=== PATIENT | male | born 1990 | race Hispanic/Latino ===

== ENCOUNTER 2021-07-27 22:29 | Emergency (ER) | payer SELFPAY ==
[2021-07-27 23:52] LABS: SARS-COV-2 RT PCR NEGATIVE (NEGATIVE)
--- NOTE | 2021-07-28 01:18 | ER ---
Nurse's Notes [facility] Name: Pino Diez Age: 31 yrs Sex: Male : 1990 Arrival Date: 07/27/2021 Time: 22:36 Bed 3 Private MD: Diagnosis: Acute upper respiratory infection, unspecified;Cough Presentation: 07/27 22:47 Chief complaint: Patient states: We have had a cough going around our family this week. ld1 Coronavirus screen: Client presents with at least one sign or symptom that may indicate coronavirus-19. Standard/surgical mask placed on the client. Ebola Screen: No symptoms or risks identified at this time. Initial Sepsis Screen: Does the patient meet any 2 criteria? No. Patient's initial sepsis screen is negative. Does the patient have a suspected source of infection? No. Patient's initial sepsis screen is negative. Risk Assessment: Do you want to hurt yourself or someone else? Patient reports no desire to harm self or others. Onset of symptoms was July 27, 2021. 22:47 Method Of Arrival: Ambulatory ld1 22:47 Acuity: CHELSEY 4 ld1 Triage Assessment: 22:48 General: Appears in no apparent distress. comfortable, Behavior is calm, cooperative, ld1 appropriate for age. Pain: Denies pain. EENT: No signs and/or symptoms were reported regarding the EENT system. Neuro: Level of Consciousness is awake, alert, obeys commands, Oriented to person, place, time, situation, Appropriate for age. Cardiovascular: Capillary refill < 3 seconds Patient's skin is warm and dry. Respiratory: Reports cough that is Airway is patent Respiratory effort is even, unlabored, Respiratory pattern is regular, symmetrical. GI: No signs and/or symptoms were reported involving the gastrointestinal system. : No signs and/or symptoms were reported regarding the genitourinary system. Derm: No signs and/or symptoms reported regarding the dermatologic system. Musculoskeletal: No signs and/or symptoms reported regarding the musculoskeletal system. Historical: - Allergies: 22:48 No Known Allergies; ld1 - Home Meds: 22:48 None [Active]; ld1 - PMHx: 22:48 None; ld1 - PSHx: 22:48 None; ld1 - Immunization history:: Adult Immunizations up to date, Client reports receiving the 2nd dose of the Covid vaccine. - Social history:: Smoking status: Patient denies any tobacco usage or history of. Patient uses alcohol, occasionally. - Family history:: not pertinent. Screenin/23 01:16 Abuse screen: Denies threats or abuse. Denies injuries from another. Nutritional tw5 screening: No deficits noted. Tuberculosis screening: No symptoms or risk factors identified. Fall Risk None identified. Assessment: 01:16 Respiratory: Reports cough that is persistent Breath sounds are clear in right upper tw5 lobe, left upper lobe, left posterior upper lobe and right posterior upper lobe Breath sounds are coarse in left posterior lower lobe, right posterior middle lobe and right posterior lower lobe. Vital Signs: 07/27 22:47 BP 149 / 102; Pulse 114; Resp 18; Temp 98.4(TE); Pulse Ox 98% on R/A; Weight 90.72 kg; ld1 Height 5 ft. 10 in. (177.80 cm); Pain 0/10; 07/28 01:31 Pulse 88; Resp 18; Temp 98.7(O); Pulse Ox 100% on R/A; tw5 07/27 22:47 Body Mass Index 28.70 (90.72 kg, 177.80 cm) ld1 ED Course: 07/27 22:36 Patient arrived in ED. bp1 22:48 Triage completed. ld1 22:48 Arm band placed on right wrist. ld1 23:05 COVID-19/FLU A+B (Document "Date of Onset" if Symptomatic) Sent. ld1 07/28 00:30 Daniel Hoffman MD is Attending Physician. luis 00:44 Smiley Barney is Primary Nurse. df1 01:16 Patient has correct armband on for positive identification. tw5 01:16 No provider procedures requiring assistance completed. Patient did not have IV access tw5 during this emergency room visit. Administered Medications: No medications were administered Outcome: 01:18 Discharge ordered by . luis 01:31 Discharged to home ambulatory. tw5 01:31 Condition: good 01:31 Discharge instructions given to patient, Instructed on discharge instructions, follow up and referral plans. Demonstrated understanding of instructions, Prescriptions given X 2. 01:32 Patient left the ED. tw5 Signatures: Daniel Hoffman MD MD cha Paniauga, Brittany bp1 Dibbern, Lauren, RN RN ld1 Smiley Barney df1 Serina Mclean tw5
--- NOTE | 2021-07-28 01:19 | EDPHYS ---
Physician Documentation [facility] Name: Pino Diez Age: 31 yrs Sex: Male : 1990 Arrival Date: 07/27/2021 Time: 22:36 Bed 3 Private MD: ED Physician Daniel Hoffman HPI: 07/28 01:15 This 31 yrs old Male presents to ER via Ambulatory with complaints of Cough. luis 01:15 The patient or guardian reports airway noise, cough, that is constant, flu symptoms, luis arthralgias, low-grade fever, myalgias. Onset: The symptoms/episode began/occurred 2 day(s) ago. Severity of symptoms: At their worst the symptoms were mild, in the emergency department the symptoms are unchanged. Modifying factors: The symptoms are alleviated by nothing, the symptoms are aggravated by nothing. Associated signs and symptoms: Pertinent positives: fever, rhinorrhea, sore throat. The patient has experienced similar episodes in the past, a few times. Historical: - Allergies: 07/27 22:48 No Known Allergies; ld1 - Home Meds: 22:48 None [Active]; ld1 - PMHx: 22:48 None; ld1 - PSHx: 22:48 None; ld1 - Immunization history:: Adult Immunizations up to date, Client reports receiving the 2nd dose of the Covid vaccine. - Social history:: Smoking status: Patient denies any tobacco usage or history of. Patient uses alcohol, occasionally. - Family history:: not pertinent. ROS: 07/28 01:15 Constitutional: Negative for fever, chills, and weight loss, Eyes: Negative for injury, luis pain, redness, and discharge, ENT: Negative for injury, pain, and discharge, Neck: Negative for injury, pain, and swelling, Cardiovascular: Negative for chest pain, palpitations, and edema, Abdomen/GI: Negative for abdominal pain, nausea, vomiting, diarrhea, and constipation, Back: Negative for injury and pain, : Negative for injury, bleeding, discharge, and swelling, MS/Extremity: Negative for injury and deformity, Skin: Negative for injury, rash, and discoloration, Neuro: Negative for headache, weakness, numbness, tingling, and seizure, Psych: Negative for depression, anxiety, suicide ideation, homicidal ideation, and hallucinations, Allergy/Immunology: Negative for hives, rash, and allergies, Endocrine: Negative for neck swelling, polydipsia, polyuria, polyphagia, and marked weight changes, Hematologic/Lymphatic: Negative for swollen nodes, abnormal bleeding, and unusual bruising. Respiratory: Positive for cough, with no reported sputum, pleurisy. Exam: 01:15 Constitutional: This is a well developed, well nourished patient who is awake, alert, luis and in no acute distress. Head/Face: Normocephalic, atraumatic. Eyes: Pupils equal round and reactive to light, extra-ocular motions intact. Lids and lashes normal. Conjunctiva and sclera are non-icteric and not injected. Cornea within normal limits. Periorbital areas with no swelling, redness, or edema. ENT: Nares patent. No nasal discharge, no septal abnormalities noted. Tympanic membranes are normal and external auditory canals are clear. Oropharynx with no redness, swelling, or masses, exudates, or evidence of obstruction, uvula midline. Mucous membranes moist. Neck: Trachea midline, no thyromegaly or masses palpated, and no cervical lymphadenopathy. Supple, full range of motion without nuchal rigidity, or vertebral point tenderness. No Meningismus. Chest/axilla: Normal chest wall appearance and motion. Nontender with no deformity. No lesions are appreciated. Cardiovascular: Regular rate and rhythm with a normal S1 and S2. No gallops, murmurs, or rubs. Normal PMI, no JVD. No pulse deficits. Respiratory: Lungs have equal breath sounds bilaterally, clear to auscultation and percussion. No rales, rhonchi or wheezes noted. No increased work of breathing, no retractions or nasal flaring. Abdomen/GI: Soft, non-tender, with normal bowel sounds. No distension or tympany. No guarding or rebound. No evidence of tenderness throughout. Back: No spinal tenderness. No costovertebral tenderness. Full range of motion. Skin: Warm, dry with normal turgor. Normal color with no rashes, no lesions, and no evidence of cellulitis. MS/ Extremity: Pulses equal, no cyanosis. Neurovascular intact. Full, normal range of motion. Neuro: Awake and alert, GCS 15, oriented to person, place, time, and situation. Cranial nerves II-XII grossly intact. Motor strength 5/5 in all extremities. Sensory grossly intact. Cerebellar exam normal. Normal gait. Psych: Awake, alert, with orientation to person, place and time. Behavior, mood, and affect are within normal limits. 01:15 Musculoskeletal/extremity: Extremities: all appear grossly normal, with no appreciated pain with palpation, DVT Exam: No signs of deep vein thrombosis. no pain, no swelling, no tenderness, negative Homans' sign noted on exam, no appreciated bluish discoloration, no erythema, no increased warmth. Vital Signs: 07/27 22:47 BP 149 / 102; Pulse 114; Resp 18; Temp 98.4(TE); Pulse Ox 98% on R/A; Weight 90.72 kg; ld1 Height 5 ft. 10 in. (177.80 cm); Pain 0/10; 07/28 01:31 Pulse 88; Resp 18; Temp 98.7(O); Pulse Ox 100% on R/A; tw5 07/27 22:47 Body Mass Index 28.70 (90.72 kg, 177.80 cm) ld1 MDM: 00:30 Patient medically screened. [facility] [place] 07/27 22:56 Order name: COVID-19/FLU A+B (Document "Date of Onset" if Symptomatic); Complete Time: ld1 00:25 Administered Medications: No medications were administered Disposition Summary: 07/28/21 01:18 Discharge Ordered Location: Home [facility] [place] Problem: new luis Symptoms: have improved luis Condition: Stable luis Diagnosis - Acute upper respiratory infection, unspecified luis - Cough luis Followup: luis - With: Private Physician - When: 2 - 3 days - Reason: Recheck today's complaints, Continuance of care, Re-evaluation by your physician Discharge Instructions: - Discharge Summary Sheet luis - Acute Bronchitis, Adult luis - Upper Respiratory Infection, Adult luis - Cool Mist Vaporizer luis - Upper Respiratory Infection, Adult, [id number] luis - Cough, Adult, [id number] luis - Cough, Adult [facility] [place] Forms: - Medication Reconciliation Form [facility] [place] - Thank You Letter luis - Antibiotic Education luis - Prescription Opioid Use [facility] [place] Prescriptions: - Bromfed DM 2-30-10 mg/5 mL Oral syrup - take 10 milliliter by ORAL route every 6 hours; 160 milliliter; Refills: 0, luis Product Selection Permitted - Zithromax Z-Floyd 250 mg Oral Tablet - take 1 tablet by ORAL route as directed for 5 days Day 1 - take two (2) tablets luis one time. Day 2, 3, 4 , 5 take one (1) tablet once daily.; 6 tablet; Refills: 0, Product Selection Permitted Signatures: Dispatcher [employer] Daniel Tellez MD MD cha Roszak, Josh, PA PA [id number] Nikki Morris RN RN ld1
[2021-07-28 01:37] VITALS: BP 149/102
[2021-07-28 01:39] VITALS: TEMP 98.7; O2SAT 100
== END 2021-07-28 01:32 | disposition home or self-care (01) ==
LOC: ER 22:29
DX: J06.9 Acute upper respiratory infection, unspecified (principal); Z20.822 Contact with and (suspected) exposure to COVID-19
CPT/HCPCS: 0240U; 99283

== ENCOUNTER 2024-08-20 15:19 | Emergency (ER) | payer SELFPAY ==
[2024-08-20 16:11] LABS: Absolute Basophils 0.1 K/uL (0-0.5); Absolute Eosinophils 0.1 K/uL (0-0.5); Absolute Lymphocytes (CBC) 1.9 K/uL (0.7-4.9); Absolute Monocytes 0.5 K/uL (0.1-1.3); Absolute Neutrophil 8.4 K/uL (1.8-8.0); Basophils % 0.5 % (0-1.3); Eosinophils % 0.5 % (0-4.4); Hemoglobin 16.7 g/dL (13.6-17.9); Lymphocytes % 17.7 % (15.3-44.8); MCH 33.1 pg (27.0-35.0); MCHC 34.2 g/dL (32.0-36.0); MCV 96.8 fL (80-100); MPV 8.6 fL (7.6-11.3); Neutrophils % 76.3 % (41.7-73.7); Nucleated Red Blood Cells % 0.1 % (0-0); Platelets 384 thou/uL (152-406); RBC Red Blood Cell Count 5.06 M/uL (4.33-5.43); Red Cell Distribution Width 13.6 % (12.1-15.2)
[2024-08-20 16:24] LABS: Anion Gap 9.4 mEq/L (5.0-15.0); Magnesium 1.7 mg/dL (1.6-2.4); Potassium 3.4 mEq/L (3.5-5.1)
[2024-08-20 16:25] LABS: SARS-CoV-2 Antigen CONTROL BLUE LINE VIS/BG OK; SARS-CoV-2 Antigen Rapid Res Negative (Negative)
[2024-08-20] MEDS ORDERED: LORazepam 2 MG/ML VIAL ONE ×2 (16:32→17:37)
[2024-08-20] MEDS ORDERED: NA CHLORIDE 0.9% 1,000 ML ONE (16:33)
--- NOTE | 2024-08-20 19:06 | RAD REPORT ---
EXAM: CT Angio Aorta For Dissection HISTORY: chest pain, HTN Bed Name: 13 COMPARISON: None TECHNIQUE: Multiple contiguous axial images were obtained a CTA of the chest and abdomen with contras t per aortic dissection protocol. Sagittal and coronal 3-D MIP reformats were performed. One or more of the following dose reduction techniques were used: Automated exposure control, adjustment of the mA and kV according to patient size, and iterative reconstruction. Unless otherwise specified, incidental findings do not require dedicated imaging follow-up. FINDINGS: PULMONARY ARTERIES: Normal in caliber without filling defects to suggest pulmonary emboli. MEDIASTINUM: No hilar or mediastinal lymphadenopathy. LUNGS: No focal infiltrates or masses. Calcified peripheral right upper lobe 4 mm granuloma. PLEURAL SPACE: No pleural effusion or pneumothorax. LIVER: Diffuse parenchymal hypoattenuation suggesting steatosis. No suspicious focal lesions. KIDNEYS: Unremarkable. SPLEEN: Unremarkable. PANCREAS: Unremarkable. BOWEL: Unremarkable. RETROPERITONEUM: No lymphadenopathy BONES: Degenerative changes in the spine. ASCENDING THORACIC AORTA: Normal caliber without evidence of dissection or aneurysmal dilatation. DESCENDING THORACIC AORTA: Normal caliber without evidence of dissection or aneurysmal dilatation. ABDOMINAL AORTA: Normal caliber without evidence of dissection or aneurysmal dilatation. CELIAC TRUNK: Patent SMA: Patent JAYLA: Patent RENAL ARTERIES: Bilateral single renal arteries without significant atherosclerotic disease IMPRESSION: No evidence of thoracic or abdominal aortic aneurysm or dissection. Diffuse hepatic steatosis.
--- NOTE | 2024-08-20 19:42 | ER ---
Nurse's Notes [facility] Name: Pino Diez Age: 34 yrs Sex: Male : 1990 Arrival Date: 08/20/2024 Time: 15:19 Bed 13 Private MD: Diagnosis: Weakness;Fever, unspecified;Essential (primary) hypertension;Tachycardia, unspecified;Chest pain, unspecified Presentation: 08/20 15:32 Chief complaint: Patient states: NUMBNESS AND TINGLING TO BILATERAL HANDS ONSET THIS cm10 MORNING. PT ALSO STATES, "I HAVE A COLD SENSATION TO MY HEART.". Coronavirus screen: Client denies travel out of the [place] in the last 14 days. Ebola Screen: Patient denies travel to an Ebola-affected area in the 21 days before illness onset. No symptoms or risks identified at this time. Initial Sepsis Screen: Does the patient meet any 2 criteria? HR > 90 bpm. Does the patient have a suspected source of infection? No. Patient's initial sepsis screen is negative. Risk Assessment: Do you want to hurt yourself or someone else? Patient reports no desire to harm self or others. Onset of symptoms was August 20, 2024. 15:32 Method Of Arrival: Ambulatory cm10 15:32 Acuity: CHELSEY 3 cm10 Triage Assessment: 15:33 General: Appears in no apparent distress. comfortable, Behavior is anxious. Neuro: No cm10 deficits noted. Level of Consciousness is awake, alert, obeys commands, Oriented to person, place, time, situation, Appropriate for age. Respiratory: No deficits noted. Airway is patent Respiratory effort is even, unlabored, Respiratory pattern is regular, symmetrical. Historical: - Allergies: 15:31 No Known Allergies; cm10 - Home Meds: 15:31 None [Active]; cm10 - PMHx: 15:31 None; cm10 - PSHx: 15:31 None; cm10 - Immunization history:: Adult Immunizations up to date. - Infectious Disease History:: Denies. - Social history:: Smoking status: Patient denies any tobacco usage or history of. - Family history:: not pertinent. - Hospitalizations: : No recent hospitalization is reported. Screenin:45 [facility] ED Fall Risk Assessment (Adult) History of falling in the last 3 months, me1 including since admission No falls in past 3 months (0 pts) Confusion or Disorientation No (0 pts) Intoxicated or Sedated No (0 pts) Impaired Gait No (0 pts) Mobility Assist Device Used No (0 pt) Altered Elimination No (0 pt) Score/Fall Risk Level 0 - 2 = Low Risk Maintained a safe environment, Provided non-skid footwear, Hourly rounding (assess needs \\T\\ fall precautionary measures) done. Abuse screen: Denies threats or abuse. Nutritional screening: No deficits noted. Tuberculosis screening: No symptoms or risk factors identified. Assessment: 16:45 General: Appears comfortable, well groomed, well developed, well nourished, Behavior is me1 calm, cooperative, appropriate for age, Reports NUMBNESS AND TINGLING TO BILATERAL HANDS ONSET THIS MORNING. PT ALSO STATES, "I HAVE A COLD SENSATION TO MY HEART.". Pain: Complains of pain in chest Pain does not radiate. Pain currently is 6 out of 10 on a pain scale. Quality of pain is described as cold Pain began suddenly, Is continuous. Neuro: Level of Consciousness is awake, alert, obeys commands, Oriented to person, place, time, situation, Appropriate for age. Neuro: Reports numbness in right hand and left hand. Cardiovascular: Patient's skin is warm and dry. Cardiovascular: Reports chest pain. Respiratory: Airway is patent Trachea midline Respiratory effort is even, unlabored, Respiratory pattern is regular, symmetrical. GI: No signs and/or symptoms were reported involving the gastrointestinal system. : No signs and/or symptoms were reported regarding the genitourinary system. EENT: No signs and/or symptoms were reported regarding the EENT system. Derm: Skin is intact, is healthy with good turgor, Skin is pink, warm \\T\\ dry. Musculoskeletal: Reports numbness in right hand and left hand. 20:39 Reassessment: Discharge delayed while mag sulfate infuses. me1 Vital Signs: 15:32 BP 180 / 112; Pulse 128; Resp 18; Temp 99.2(O); Pulse Ox 98% on R/A; Weight 90.72 kg; cm10 Height 5 ft. 8 in. ; Pain 9/10; 16:30 BP 146 / 105; Pulse 110; Resp 18; Pulse Ox 98% on R/A; me1 17:30 BP 152 / 99; Pulse 106; Resp 22; Pulse Ox 96% ; me1 18:30 BP 124 / 97; Pulse 106; Resp 18; Pulse Ox 99% ; me1 19:30 BP 128 / 97; Pulse 106; Resp 18; Pulse Ox 99% ; me1 20:30 BP 140 / 92; Pulse 105; Resp 18; Pulse Ox 98% ; me1 15:32 Body Mass Index 30.41 (90.72 kg, 172.72 cm) cm10 15:32 Pain Scale: Adult cm10 ED Course: 15:22 Patient arrived in ED. im 15:31 Eric Mcdermott MD is Attending Physician. rn 15:33 Triage completed. cm10 15:33 Arm band placed on right wrist. Patient placed in an exam room, on a stretcher. cm10 15:46 EKG done, by ED staff, reviewed by Eric Mcdermott MD. cm10 16:24 Initial lab(s) drawn, by me, sent to lab. Inserted saline lock: 20 gauge in left kb4 antecubital area, using aseptic technique. Blood collected. Flushed with 10 mL NS. 16:30 Dinorah Delatorre, LINH is Primary Nurse. me1 16:45 Patient has correct armband on for positive identification. Bed in low position. Call me1 light in reach. Side rails up X2. Provided Education on: POC. Verbalized understanding.. Client placed on continuous cardiac and pulse oximetry monitoring. NIBP monitoring applied. water project engineer on. Pulse ox on. NIBP on. 16:45 No provider procedures requiring assistance completed. me1 18:53 CT Aorta for Dissection In Process Unspecified. EDMS 19:26 Attending Physician role handed off by Eric Mcdermott MD luis 19:26 Daniel Hoffman MD is Attending Physician. luis 19:40 Jayjay Garcia DO is Referral Physician. luis 19:41 Rosales Robin MD is Referral Physician. luis 19:50 Troponin High Sensitivity: now 740pm Sent. rv1 21:46 IV discontinued, intact, bleeding controlled, No redness/swelling at site. Pressure me1 dressing applied. Administered Medications: 16:38 Drug: Ativan IVP 1 mg IVP once Route: IVP; Site: left antecubital; me1 16:41 Follow up: Response: No adverse reaction; Anxiety decreased me1 16:38 Drug: NS 0.9% IV 1000 ml IV at 1000 ml once; to be given as a bolus over 60 minutes me1 Route: IV; Rate: 1000 ml; Site: left antecubital; 17:53 Follow up: Response: No adverse reaction; IV Status: Completed infusion; IV Intake: me1 1000ml 17:38 Drug: Ativan IVP 1 mg IVP once Route: IVP; Site: left antecubital; me1 17:53 Follow up: Response: No adverse reaction; Anxiety decreased me1 20:39 Drug: Potassium PO Effervescent Tablet 25 mEq PO once; dissolve in 4 ounces of water or me1 juice Route: PO; 21:33 Follow up: Response: No adverse reaction me1 20:39 Drug: Magnesium Sulfate IVPB 1 grams IVPB once over 1 hrs Route: IVPB; Infused Over: 1 me1 hrs; Site: left antecubital; 21:45 Follow up: Response: No adverse reaction; IV Status: Completed infusion me1 20:39 Drug: Aspirin PO Chewable Tablet 81 mg PO once Route: PO; me1 21:33 Follow up: Response: No adverse reaction me1 20:39 Drug: Acetaminophen PO 1000 mg PO once Route: PO; me1 21:33 Follow up: Response: No adverse reaction; Pain is decreased me1 Medication: 16:45 VIS not applicable for this client. me1 Intake: 17:53 IV: 1000ml; Total: 1000ml. me1 Outcome: 19:42 Discharge ordered by MD. smith 21:46 Discharged to home ambulatory, me1 21:46 Condition: stable 21:46 Discharge instructions given to patient, Instructed on discharge instructions, follow up and referral plans. medication usage, Demonstrated understanding of instructions, follow-up care, medications, Prescriptions given X 1, 21:46 Patient left the ED. me1 Signatures: Dispatcher [employer] EDMS Daniel Hoffman MD MD cha Nieto, Roman, MD MD rn Villegas, Rebecca rv1 Brenda Ortiz Clarissa, RN RN cm10 Dinorah Delatorre RN RN me1 Zoey Nunez kb4 Corrections: (The following items were deleted from the chart) 16:45 15:32 Chief complaint: Patient states: NUMBNESS AND TINGLING TO BILATERAL HANDS ONSET me1 THIS MORNING. PT ALSO STATES, "I HAVE A COLD SENSATION TO MY HEART." cm10 17:53 13:00 BP 146 / 105; Pulse 110bpm; Resp 18bpm; Pulse Ox 98% RA; me1 me1
--- NOTE | 2024-08-20 19:42 | EDPHYS ---
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 17:40 Patient reports tingling to all 4 extremities and feeling coldness in his heart/chest. rn Patient reports frequent drinker last drink was yesterday. Also reports under a lot of stress lately. Denies drug use. Does not feel ill. Denies fever. No cough or shortness of breath. No runny nose. No abdominal pain or vomiting/diarrhea. No rash.. Historical: - Allergies: 15:31 No Known Allergies; cm10 - Home Meds: 15:31 None [Active]; cm10 - PMHx: 15:31 None; cm10 - PSHx: 15:31 None; cm10 - Immunization history:: Adult Immunizations up to date. - Infectious Disease History:: Denies. - Social history:: Smoking status: Patient denies any tobacco usage or history of. - Family history:: not pertinent. - Hospitalizations: : No recent hospitalization is reported. ROS: 17:40 Constitutional: Negative for fever, chills, and weight loss, Eyes: Negative for injury, rn pain, redness, and discharge, Cardiovascular: Negative for chest pain, palpitations, and edema, Respiratory: Negative for shortness of breath, cough, wheezing, and pleuritic chest pain, Abdomen/GI: Negative for abdominal pain, nausea, vomiting, diarrhea, and constipation, MS/Extremity: Negative for injury and deformity, Skin: Negative for injury, rash, and discoloration, Neuro: Positive for tingling to all 4 extremities Exam: 15:47 ECG was reviewed by the Attending Physician. rn 17:40 Constitutional: This is a well developed, well nourished patient who is awake, alert, rn appears anxious ENT: Dry mucous membranes with tongue fasciculations Cardiovascular: Tachycardic, regular. Respiratory: Speaking full sentences. Abdomen/GI: Soft, nontender MS/ Extremity: Pulses equal, no cyanosis. Neurovascular intact. Full, normal range of motion. Equal circumference. Neuro: Awake and alert, GCS 15, oriented to person, place, time, and situation. Cranial nerves II-XII grossly intact. Motor strength 5/5 in all extremities. Sensory grossly intact. Cerebellar exam normal. Normal gait. 19:51 ECG was reviewed by the Attending Physician. [facility] Vital Signs: 15:32 BP 180 / 112; Pulse 128; Resp 18; Temp 99.2(O); Pulse Ox 98% on R/A; Weight 90.72 kg; cm10 Height 5 ft. 8 in. ; Pain 9/10; 16:30 BP 146 / 105; Pulse 110; Resp 18; Pulse Ox 98% on R/A; me1 17:30 BP 152 / 99; Pulse 106; Resp 22; Pulse Ox 96% ; me1 18:30 BP 124 / 97; Pulse 106; Resp 18; Pulse Ox 99% ; me1 19:30 BP 128 / 97; Pulse 106; Resp 18; Pulse Ox 99% ; me1 20:30 BP 140 / 92; Pulse 105; Resp 18; Pulse Ox 98% ; me1 15:32 Body Mass Index 30.41 (90.72 kg, 172.72 cm) cm10 15:32 Pain Scale: Adult cm10 MDM: 15:31 Medical Screening Exam initiated rn 18:02 Differential diagnosis: anxiety, stress reaction, ETOH withdrawal. Data reviewed: vital rn signs, nurses notes, lab test result(s), radiologic studies, CT scan, and as a result, I will discharge patient. Counseling: I had a detailed discussion with the patient and/or guardian regarding the historical points, exam findings, and any diagnostic results supporting the discharge/admit diagnosis, lab results, the need for outpatient follow up, to return to the emergency department if symptoms worsen or persist or if there are any questions or concerns that arise at home. ED course: Patient improving after benzos and fluids. Most likely anxiety/stress reaction along with frequent alcohol intake and mild withdrawal. Symptoms improving. Patient feels better. Recommend tapering of alcohol to eventual cessation. Also recommend PCP follow-up and given return precautions.. 18:07 Special discussion: I discussed with the patient/guardian in detail that at this point rn there is no indication for admission to the hospital. It is understood, however, that if the symptoms persist or worsen the patient needs to return immediately for re-evaluation. Based on the history and exam findings, there is no indication for further emergent testing or inpatient evaluation. I discussed with the patient/guardian the need to see the primary care provider for further evaluation of the symptoms. 08/20 15:42 Order name: CBC with Diff; Complete Time: 17:03 rn 08/20 15:42 Order name: Basic Metabolic Panel; Complete Time: 17:03 rn 08/20 15:48 Order name: Flu; Complete Time: 17:03 rn 08/20 15:48 Order name: SARS RAPID; Complete Time: 17:03 rn 08/20 16:11 Order name: Magnesium; Complete Time: 17:03 EDMS 08/20 18:08 Order name: Troponin High Sensitivity; Complete Time: 19:26 rn 08/20 19:39 Order name: Troponin High Sensitivity: now 740pm; Complete Time: 20:11 [facility] 08/20 18:08 Order name: CT Aorta for Dissection; Complete Time: 19:26 rn 08/20 19:39 Order name: EKG; Complete Time: 19:40 [facility] 08/20 15:42 Order name: IV Start; Complete Time: 16:27 rn 08/20 15:42 Order name: EKG - Nurse/Tech; Complete Time: 15:46 rn 08/20 19:38 Order name: PO challenge: juice/gatorade; Complete Time: 20:39 [facility] 08/20 19:39 Order name: EKG - Nurse/Tech; Complete Time: 19:50 [facility] EC:47 Rate is 122 beats/min. Rhythm is regular. QRS [place] is Normal. [place] interval is normal. rn QRS interval is normal. QT interval is normal. No Q waves. T waves are Normal. No ST changes noted. Clinical impression: Sinus tachycardia. Interpreted by me. Reviewed by me. 19:51 Rate is 103 beats/min. Rhythm is regular. QRS [place] is Normal. [place] interval is normal. luis QRS interval is normal. QT interval is normal. No Q waves. T waves are Normal. No ST changes noted. Clinical impression: Sinus tachycardia and No evidence of ischemia. Interpreted by me. Reviewed by me. Administered Medications: 16:38 Drug: Ativan IVP 1 mg IVP once Route: IVP; Site: left antecubital; me1 16:41 Follow up: Response: No adverse reaction; Anxiety decreased me1 16:38 Drug: NS 0.9% IV 1000 ml IV at 1000 ml once; to be given as a bolus over 60 minutes me1 Route: IV; Rate: 1000 ml; Site: left antecubital; 17:53 Follow up: Response: No adverse reaction; IV Status: Completed infusion; IV Intake: me1 1000ml 17:38 Drug: Ativan IVP 1 mg IVP once Route: IVP; Site: left antecubital; me1 17:53 Follow up: Response: No adverse reaction; Anxiety decreased me1 20:39 Drug: Potassium PO Effervescent Tablet 25 mEq PO once; dissolve in 4 ounces of water or me1 juice Route: PO; 21:33 Follow up: Response: No adverse reaction me1 20:39 Drug: Magnesium Sulfate IVPB 1 grams IVPB once over 1 hrs Route: IVPB; Infused Over: 1 me1 hrs; Site: left antecubital; 21:45 Follow up: Response: No adverse reaction; IV Status: Completed infusion me1 20:39 Drug: Aspirin PO Chewable Tablet 81 mg PO once Route: PO; me1 21:33 Follow up: Response: No adverse reaction me1 20:39 Drug: Acetaminophen PO 1000 mg PO once Route: PO; me1 21:33 Follow up: Response: No adverse reaction; Pain is decreased me1 Disposition Summary: 08/20/24 19:42 Discharge Ordered Notes: Location: Home luis Problem: new luis Symptoms: have improved luis Condition: Stable luis Diagnosis - Weakness luis - Fever, unspecified luis - Essential (primary) hypertension luis - Tachycardia, unspecified luis - Chest pain, unspecified luis Followup: luis - With: Private Physician - When: 1 - 2 days - Reason: Recheck today's complaints, Continuance of care, Re-evaluation by your physician Followup: luis - With: Jayjay Garcia DO - When: 2 - 3 days - Reason: Recheck today's complaints, Re-evaluation by your physician Followup: luis - With: Rosales Robin MD - When: 2 - 3 days - Reason: Recheck today's complaints, Re-evaluation by your physician Discharge Instructions: - Discharge Summary Sheet luis - Nonspecific Chest Pain, Adult luis - Fever, Adult luis - Hypertension, Adult luis - Weakness luis - Nonspecific Chest Pain, Adult, [id number] luis - Hypertension, Adult, [id number] luis - Weakness, [id number] luis - Aspirin and Your Heart luis - Managing Your Hypertension luis Forms: - Medication Reconciliation Form luis - Antibiotic Education luis - Prescription Opioid Use luis - Patient Portal Instructions luis - Leadership Thank You Letter [facility] Prescriptions: - Pepcid 20 mg Oral tablet - take 1 tablet ORAL route every 12 hours for 21 days; 42 tablet; Refills: 0, luis Product Selection Permitted Signatures: Dispatcher [employer] Daniel Tellez MD MD cha Nieto, Roman, MD MD rn Shruthi Santiago RN RN cm10 Dinorah Delatorre RN RN me1 Corrections: (The following items were deleted from the chart) 16:12 15:48 MAGNESIUM+C.LAB.BRZ ordered. EDMS EDMS 19:40 19:40 Troponin High Sensitivity+C.LAB.BRZ ordered. EDMS EDMS
[2024-08-20] MEDS ORDERED: ASPIRIN 81 MG CHEWABLE TABLET ONE (20:34)
[2024-08-20] MEDS ORDERED: ACETAMINOPHEN 500 MG TAB ONE (20:34)
[2024-08-20] MEDS ORDERED: POTASSIUM 25 MEQ EFFERV TAB ONE (20:35)
[2024-08-20] MEDS ORDERED: MAGNESIUM SULFATE 1 gm IVPB 1 GM/100 ML BAG IV ONE (20:35)
[2024-08-20 21:59] VITALS: TEMP 99.2
[2024-08-20 22:09] VITALS: BP 140/92; O2SAT 98
--- NOTE | 2024-08-21 11:56 | EKG ---
Test Date: 2024-08-20 Test Time: 19:45:50 Log Check Scaler: RV MEASUREMENT RESULTS: Intervals: Rate: 103 [place]: 152 QRSD: 84 QT: 344 QTc: 450 [place]: P: 42 [place]: 152 QRS: -22 T: 24 INTERPRETIVE STATEMENTS: Sinus tachycardia Otherwise normal ECG No previous ECG available for comparison Electronically Signed On 08-21-24 11:55:42 PROPOSAL CONSULTANT by Vincent Howell
--- NOTE | 2024-08-23 11:36 | EKG ---
Test Date: 2024-08-20 Test Time: 15:39:21 Academic Program Specialist: GALLO MEASUREMENT RESULTS: Intervals: Rate: 122 CT: 164 QRSD: 80 QT: 318 QTc: 453 [place]: P: 51 CT: 164 QRS: -55 T: 46 INTERPRETIVE STATEMENTS: Sinus tachycardia Possible Left atrial enlargement Left anterior fascicular block Possible Inferior infarct, age undetermined Cannot rule out Anterior infarct, age undetermined Abnormal ECG No previous ECG available for comparison Electronically Signed On 08-23-24 11:34:29 HOME CARE MANAGER RN by Vincent Howell
== END 2024-08-20 21:46 | disposition home or self-care (01) ==
LOC: ER 15:19
DX: R53.1 Weakness (principal); R50.9 Fever, unspecified; I10 Essential (primary) hypertension; R07.9 Chest pain, unspecified; R00.0 Tachycardia, unspecified
CPT/HCPCS: 36415; 71275; 74175; 80048; 83735; 84484; 85025; 87804; 87811; 93005; 96361; 96365; 96375; 99285; J3475; J7030; Q9967